=== PATIENT | female | born 1970 | race Two or more races ===

== ENCOUNTER 2017-10-27 18:02 | Emergency (ER) | payer MEDICAID ==
[~2017-10-27] VITALS: Ht 154.9 cm; Wt 59.0 kg
[2017-10-27 18:16] VITALS: BP 156/70
[2017-10-27 18:41] LABS: Urine Bacteria NONE SEEN /hpf (None Seen); Urine Blood Negative /uL (Negative); Urine Mucus FEW (None Seen); Urine Specific Gravity 1.019 (1.001-1.035); Urine WBC 11 /hpf (0 - 5)
[2017-10-27 18:46] LABS: Eosinophils # (auto) 0 uL; Hemoglobin 10.1 g/dL (12.2-16.2); Lymphocytes # (auto) 0.9 uL; Neutrophils # (auto) 12.2 uL; White Blood Cell 13.7 10^3/uL (4.4-10.8)
[2017-10-27 18:48] LABS: Basophils # (auto) 0 uL; Basophils % (auto) 0.3 % (0.0-2.0); Hematocrit 31.5 % (36.0-46.0); Lymphocytes % (auto) 6.7 % (10.0-50.0); Mean Corpuscular Hemoglobin 22.6 pg (28.0-32.0); Mean Corpuscular Hgb Conc. 32.1 g/dL (32.0-36.0); Mean Corpuscular Volume 70.2 fL (80.0-100.0); Monocytes # (auto) 0.6 uL; Monocytes % (auto) 4.1 % (0.0-12.0); Neutrophils % (auto) 88.9 % (37.0-80.0); Platelet Count (auto) 283 10^3/uL (140-450); Red Blood Cells 4.48 10^6/uL (4.0-5.20); Red Cell Distribution Width 19.1 % (11.8-14.3)
[2017-10-27 19:02] LABS: BUN/Creatinine Ratio 15.8; Calcium 8.9 mg/dL (8.5-10.1); Potassium 3.4 mmol/L (3.5-5.1)
== END 2017-10-27 22:27 | disposition home or self-care (01) ==
LOC: ER 18:02
DX: N39.0 Urinary tract infection, site not specified (principal); K29.70 Gastritis, unspecified, without bleeding; R42 Dizziness and giddiness
CPT/HCPCS: 36415; 76705; 80048; 81001; 81025; 83690; 85025

== ENCOUNTER 2020-12-02 12:16 | Inpatient (IN) | payer MEDICAID ==
[~2020-12-02] VITALS: Ht 162.6 cm; Wt 53.2 kg
[2020-12-02] MEDS ORDERED: DexAMETHasone SOD PHOS 10MG/1ML VIAL INJ IV ONE (18:00)
[2020-12-02] MEDS ORDERED: AZITHROMYCIN 500MG/ 250ML 250 ML IV ONE (18:00)
[2020-12-02] MEDS ORDERED: cefTRIAXone 1GM/50ML D5W 50 ML IV ONE (18:00)
[2020-12-02 19:47] LABS: Basophils # (auto) 0 10 ^3/uL (0-0.2); Eosinophils # (auto) 0 10 ^3/uL (0-0.8); Monocytes # (auto) 0.3 10 ^3/uL (0-1.3); White Blood Cell 4.3 10^3/uL (4.4-10.8)
[2020-12-02 19:49] LABS: Basophils % (auto) 0.4 % (0.0-2.0); Hematocrit 43.4 % (36.0-46.0); Hemoglobin 14.7 g/dL (12.2-16.2); Lymphocytes # (auto) 0.6 10 ^3/uL (0.4-5.4); Lymphocytes % (auto) 13.1 % (10.0-50.0); Mean Corpuscular Hgb Conc. 33.8 g/dL (32.0-36.0); Neutrophils # (auto) 3.4 10 ^3/uL (1.6-8.6); Neutrophils % (auto) 79.5 % (37.0-80.0); Nucleated Red Blood Cells % 0.2 %; Red Blood Cells 5.43 10^6/uL (4.0-5.20); Red Cell Distribution Width 15.9 % (11.8-14.3)
[2020-12-02 20:01] LABS: Albumin 3.3 g/dL (3.4-5.0); Anion Gap 10 (5-15); Aspartate Aminotransferase 34 U/L (15-37); Blood Urea Nitrogen 7 mg/dL (7-18); Calcium 8.7 mg/dL (8.5-10.1); Carbon Dioxide 27 mmol/L (21-32); Chloride 94 mmol/L (98-107); GFR African American 89 mL/min; GFR Non-African American 74 mL/min; Glucose 383 mg/dL (74-106); Potassium 3.1 mmol/L (3.5-5.1); Sodium 131 mmol/L (136-145)
[2020-12-02 20:10] LABS: Alanine Aminotransferase 42 U/L (13-56); Alkaline Phosphatase 85 U/L (45-117); Bilirubin, Total 0.4 mg/dL (0.2-1.0); Total Protein 8.6 g/dL (6.4-8.2)
[2020-12-03] MEDS ORDERED: ONDANSETRON HCL 4 MG/2 ML VIAL IV PRN (01:00)
[2020-12-03] MEDS ORDERED: NITROGLYCERIN 0.4 MG SL TAB SL PRN (01:00)
[2020-12-03] MEDS ORDERED: TEMAZEPAM 15 MG CAP PO PRN (01:00)
[2020-12-03] MEDS ORDERED: ACETAMINOPHEN 500 MG TAB PO PRN (01:00)
[2020-12-03] MEDS ORDERED: MORPHINE SULFATE INJECTION 2 MG/ML SYRG IV PRN (01:00)
[2020-12-03] MEDS ORDERED: REMDESIVIR PER PHARMACY 0 ML IV SCH (02:45)
[2020-12-03] MEDS ORDERED: DEXTROSE (50%) 50ML SYRG IV PRN ×2 (07:00→12:15)
[2020-12-03] MEDS ORDERED: InsuLIN REG 1unit/0.01ml Soln (100units/ml) SC SCH (07:00)
[2020-12-03] MEDS: cefTRIAXone 1GM/50ML D5W 50 ML IV SCH (08:28)
[2020-12-03] MEDS: DexAMETHasone SOD PHOS 10MG/1ML VIAL INJ IV SCH (08:29)
[2020-12-03] MEDS: ASCORBIC ACID 1,000 MG TAB PO SCH (08:29)
[2020-12-03] MEDS: PANTOPRAZOLE 40 MG TAB PO SCH (08:29)
[2020-12-03] MEDS: ZINC SULFATE 220mg CAP or TAB PO SCH (08:29)
[2020-12-03] MEDS: ENOXAPARIN SOD 40 MG/0.4 ML SYRINGE SC SCH ×2 (08:30→20:52)
[2020-12-03] MEDS: CHOLECALCIFEROL (VITD3) 2,000 UNIT CAP/TAB PO SCH (08:30)
[2020-12-03] MEDS: ACCU-CHEK COMFORT CURVE STRIP VI SCH ×6 (08:49→23:53)
[2020-12-03 09:00] VITALS: BP 103/65
[2020-12-03] MEDS: AZITHROMYCIN 500MG/ 250ML 250 ML IV SCH (09:33)
[2020-12-03] MEDS ORDERED: ACCU-CHEK COMFORT CURVE STRIP VI SCH (12:00)
[2020-12-03] MEDS ORDERED: InsuLIN REG 1unit/0.01ml Soln (100units/ml) IV ONE (12:15)
[2020-12-03] MEDS: InsuLIN REG 1unit/0.01ml Soln (100units/ml) SC SCH ×4 (12:25→23:56)
[2020-12-03] MEDS: SODIUM CHLORIDE 0.9% 1,000 ML IV SCH ×2 (12:30→20:51)
[2020-12-03 13:00] VITALS: BP 118/75
[2020-12-03] MEDS ORDERED: REMDESIVIR 200 MG in NS 210ml LOADING DOSE ADULT IV ONE (15:00)
[2020-12-03 15:43] LABS: Urine Bacteria NONE SEEN /hpf (None Seen); Urine Blood 3+ /uL (Negative); Urine WBC 55 /hpf (0 - 5)
[2020-12-03 17:00] VITALS: BP 116/74
[2020-12-03 22:00] VITALS: BP 112/65
[2020-12-03] MEDS: ALBUTEROL SULF HFA 90MCG INH 200DOSE IN PRN (23:01)
[2020-12-04] MEDS: ACCU-CHEK COMFORT CURVE STRIP VI SCH ×5 (03:45→20:13)
[2020-12-04] MEDS: InsuLIN REG 1unit/0.01ml Soln (100units/ml) SC SCH ×5 (03:47→20:17)
[2020-12-04] MEDS: SODIUM CHLORIDE 0.9% 1,000 ML IV SCH ×2 (04:51→17:25)
[2020-12-04 05:00] VITALS: BP 105/68
[2020-12-04 06:09] LABS: Basophils # (auto) 0 10 ^3/uL (0-0.2); Eosinophils # (auto) 0 10 ^3/uL (0-0.8); Mean Corpuscular Hgb Conc. 33.4 g/dL (32.0-36.0); Red Cell Distribution Width 15.6 % (11.8-14.3)
[2020-12-04 06:12] LABS: Basophils % (auto) 0.1 % (0.0-2.0); Hematocrit 34.1 % (36.0-46.0); Hemoglobin 11.4 g/dL (12.2-16.2); Lymphocytes # (auto) 0.9 10 ^3/uL (0.4-5.4); Lymphocytes % (auto) 7.8 % (10.0-50.0); Mean Corpuscular Hemoglobin 26.2 pg (28.0-32.0); Mean Corpuscular Volume 78.6 fL (80.0-100.0); Monocytes # (auto) 0.4 10 ^3/uL (0-1.3); Monocytes % (auto) 3.5 % (0.0-12.0); Neutrophils # (auto) 10.1 10 ^3/uL (1.6-8.6); Neutrophils % (auto) 88.6 % (37.0-80.0); Red Blood Cells 4.34 10^6/uL (4.0-5.20); White Blood Cell 11.5 10^3/uL (4.4-10.8)
[2020-12-04 06:34] LABS: Albumin 2.3 g/dL (3.4-5.0); BUN/Creatinine Ratio 21.1; Bilirubin, Total 0.2 mg/dL (0.2-1.0); Calcium 8.1 mg/dL (8.5-10.1); Total Protein 6.2 g/dL (6.4-8.2)
[2020-12-04] MEDS: ALBUTEROL SULF HFA 90MCG INH 200DOSE IN PRN (07:01)
[2020-12-04] MEDS: cefTRIAXone 1GM/50ML D5W 50 ML IV SCH (08:05)
[2020-12-04] MEDS: ASCORBIC ACID 1,000 MG TAB PO SCH (08:06)
[2020-12-04] MEDS: CHOLECALCIFEROL (VITD3) 2,000 UNIT CAP/TAB PO SCH (08:06)
[2020-12-04] MEDS: ZINC SULFATE 220mg CAP or TAB PO SCH (08:06)
[2020-12-04] MEDS: PANTOPRAZOLE 40 MG TAB PO SCH (08:06)
[2020-12-04] MEDS: DexAMETHasone SOD PHOS 10MG/1ML VIAL INJ IV SCH (08:06)
[2020-12-04] MEDS: ENOXAPARIN SOD 40 MG/0.4 ML SYRINGE SC SCH ×2 (08:07→21:13)
[2020-12-04] MEDS: AZITHROMYCIN 500MG/ 250ML 250 ML IV SCH (10:23)
[2020-12-04 13:00] VITALS: BP 108/64
[2020-12-04] MEDS: REMDESIVIR 100mg 100 MG in SODIUM CHL 0.9% 230 ML IV SCH (15:25)
[2020-12-04 16:47] VITALS: BP 110/69
[2020-12-04] MEDS ORDERED: POTASSIUM CHL 20 Meq TABLET PO ONE (21:00)
[2020-12-04 22:00] VITALS: BP 120/72
[2020-12-05] MEDS: ACCU-CHEK COMFORT CURVE STRIP VI SCH ×5 (00:36→17:08)
[2020-12-05] MEDS: SODIUM CHLORIDE 0.9% 1,000 ML IV SCH ×3 (01:17→17:08)
[2020-12-05] MEDS: InsuLIN REG 1unit/0.01ml Soln (100units/ml) SC SCH ×5 (03:43→17:05)
[2020-12-05 05:00] VITALS: BP 125/67
[2020-12-05 06:06] LABS: BUN/Creatinine Ratio 19.1; Calcium 7.5 mg/dL (8.5-10.1)
[2020-12-05] MEDS: ALBUTEROL SULF HFA 90MCG INH 200DOSE IN PRN (06:57)
[2020-12-05] MEDS: ZINC SULFATE 220mg CAP or TAB PO SCH (08:31)
[2020-12-05] MEDS: DexAMETHasone SOD PHOS 10MG/1ML VIAL INJ IV SCH (08:31)
[2020-12-05] MEDS: cefTRIAXone 1GM/50ML D5W 50 ML IV SCH (08:32)
[2020-12-05] MEDS: ASCORBIC ACID 1,000 MG TAB PO SCH (08:32)
[2020-12-05] MEDS: ENOXAPARIN SOD 40 MG/0.4 ML SYRINGE SC SCH (08:32)
[2020-12-05] MEDS: CHOLECALCIFEROL (VITD3) 2,000 UNIT CAP/TAB PO SCH (08:32)
[2020-12-05] MEDS: PANTOPRAZOLE 40 MG TAB PO SCH (08:32)
[2020-12-05 09:00] VITALS: BP 130/80
[2020-12-05] MEDS: AZITHROMYCIN 500MG/ 250ML 250 ML IV SCH (10:19)
[2020-12-05 12:32] VITALS: BP 136/80
[2020-12-05] MEDS: REMDESIVIR 100mg 100 MG in SODIUM CHL 0.9% 230 ML IV SCH (15:50)
== END 2020-12-05 19:22 | disposition home or self-care (01) | DRG 720 ==
LOC: ER 12:16 → TELE 12-03 00:51 → TELE-EAST 12-03 11:33
PROVIDERS: ADMIT Nurse Practitioner; ATTEND Family Medicine
PROC: XW033E5 Introduction of Remdesivir Anti-infective into Peripheral Vein, Percutaneous Approach, New Technology Group 5 (ICD-10-PCS; principal; 2020-12-03)
DX: A41.89 Other specified sepsis (principal); J96.01 Acute respiratory failure with hypoxia; J12.82 Pneumonia due to coronavirus disease 2019; U07.1 COVID-19; E87.6 Hypokalemia; E11.65 Type 2 diabetes mellitus with hyperglycemia
CPT/HCPCS: 36415; 71045; 80048; 80053; 81001; 82728; 82962; 83036; 83605; 83735; 84484; 85025; 85379; 86141; 87426; 93005; 94640; 96365; 96366; 96368; 96372; 96375; 96376; 99291; G0378; J0696; J1100; J1815; J2405

== ENCOUNTER 2022-08-10 17:36 | Emergency (ER) | payer MEDICAID ==
[~2022-08-10] VITALS: Ht 152.4 cm; Wt 49.6 kg
[2022-08-10] MEDS ORDERED: AZIT250T9 PO (18:39)
[2022-08-10] MEDS ORDERED: PRED20TA2 PO (18:39)
[2022-08-10 21:34] VITALS: BP 154/84
== END 2022-08-10 21:40 | disposition home or self-care (01) ==
LOC: ER 17:36
DX: J06.9 Acute upper respiratory infection, unspecified (principal); R07.89 Other chest pain
CPT/HCPCS: 71045